=== PATIENT | female | born 1960 | race Caucasian/White ===

== ENCOUNTER 2021-05-11 13:05 | Emergency (ER) | payer BC ==
[~2021-05-11] VITALS: Ht 167.6 cm; Wt 72.5 kg
--- NOTE | 2021-05-11 16:34 | NUR ---
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
--- NOTE | 2021-05-11 16:40 | NUR ---
PT BROUGHT TO ROOM IN WHEELCHAIR, PT TRANSFERED SELF FROM CHAIR TO GURNEY. PT CONNECTED TO ALL MONITORS. PT STATES SHE NEVER LOST CONCIOUSNESS BUT IS HAVING NAUSEA AND VOMITING.
--- NOTE | 2021-05-11 16:42 | NUR ---
SEES PT BEDSIDE, PT SCANS REVIEWED
[2021-05-11] MEDS ORDERED: ONDANSETRON ODT 4 MG ONE (16:49)
[2021-05-11] MEDS ORDERED: ONDANSETRON ODT 4 MG PO ONE (17:00)
--- NOTE | 2021-05-11 18:06 | NUR ---
PO CHALLENGE PASSED
[2021-05-11 19:05] VITALS: BP 148/92
== END 2021-05-11 19:08 | disposition home or self-care (01) ==
LOC: ED 17:44
DX: F07.81 Postconcussional syndrome (principal); R11.2 Nausea with vomiting, unspecified
CPT/HCPCS: 70450; 99284; Q0162